=== PATIENT | male | born 1950 | race African-American/Black ===

== ENCOUNTER → 2025-02-03 | Day surgery (SDC) | payer MEDICAID ==
[~2025-02-03] VITALS: Ht 175.3 cm; Wt 91.2 kg
[~2025-02-03] MED LIST: ACETAMINOPHEN 1,000MG/100ML PREMIX IV PRN; AMLO5TAB88 PO; ATOR-2 PO; BACL5TAB PO; BALANCED SALT IRRIG SOLN 15ML ONE; BALANCED SALT IRRIG SOLN COMB1 500ML OP NR; BUPIVACAINE HCL/PF 0.75% (7.5MG/ML) 10ML ONE; CIPROFLOXACIN 0.3% OPHTH SOLN 2.5ML ONE; CYCLOPENTOLATE HCL 1% OPHTH DROPS 2ML LEFTEYE NR; CYCLOPENTOLATE HCL 1% OPHTH DROPS 2ML ONE; FAMOTIDINE 20MG/2ML VIAL IV PRN; HYALURONATE SODIUM 10MG/ML 0.55ML SYRINGE IO ONE; HYDRALAZINE 20MG/ML VIAL IV PRN; HYDROMORPHONE HCL/PF 1MG/ML INJ IV PRN; LABETALOL 5MG/ML 4ML INJ IV PRN; LACTATED RINGERS 1,000 ML IV SCH; LIDOCAINE HCL 2% 5ML SYRINGE IV ONE; LIDOCAINE HCL/EPINEPHRINE 2%-EPI 1:200,000 20ML VIAL ONE; MEPERIDINE HCL/PF 25MG/ML CPJ IV PRN; NEO/POLYMYX B SULF/DEXAMETH OPHTH OINT 3.5GM ONE; ONDANSETRON HCL 4MG/2ML INJ IV PRN; PANT40TA51 PO; PHENYLEPHRINE HCL 10% OPHTH DROPS 5ML LEFTEYE NR; PHENYLEPHRINE HCL 10% OPHTH DROPS 5ML ONE; PREDNISOLONE ACETATE 1% OPHTH DROPS 5ML ONE; PROPOFOL 10MG/ML 100ML 100 ML IV ONE; TETRACAINE 0.5% OPHTH DROPS 4ML ONE; TROPICAMIDE 1% OPHTH DROPS 15ML LEFTEYE NR; TROPICAMIDE 1% OPHTH DROPS 15ML ONE; TRYPAN BLUE 0.5 ML DISP.SYRIN IO ONE
== END | disposition home or self-care (01) ==
LOC: OR 06:54
PROVIDERS: ATTEND Ophthalmology
DX: H25.89 Other age-related cataract (principal); I25.2 Old myocardial infarction; I12.9 Hypertensive chronic kidney disease with stage 1 through stage 4 chronic kidney disease, or unspecified chronic kidney disease; N18.2 Chronic kidney disease, stage 2 (mild); E78.5 Hyperlipidemia, unspecified; N40.0 Benign prostatic hyperplasia without lower urinary tract symptoms; Z86.2 Personal history of diseases of the blood and blood-forming organs and certain disorders involving the immune mechanism; Z98.890 Other specified postprocedural states; Z79.899 Other long term (current) drug therapy
CPT/HCPCS: 67005; 66984; 82962; J3490; Q9957; J2003; J2704; A4217; V2632